=== PATIENT | female | born 1970 | race Caucasian/White ===

== ENCOUNTER 2024-02-27 20:46 | Emergency (ER) | payer OTHER, SELFPAY ==
--- NOTE | 2024-02-27 21:45 | RAD REPORT ---
EXAMINATION: CT HEAD WITHOUT CONTRAST CT CERVICAL SPINE WITHOUT CONTRAST CLINICAL INDICATION: Female, 53 years old. head injury TECHNIQUE: Axial CT images from the skull base to the vertex without intravenous contrast. Axial CT i mages through the cervical spine were obtained without intravenous contrast. Sagittal and coronal reformatted images were created from the data set. Coronal and sagittal reformatted images were creat ed from the data set. One or more of the following dose reduction techniques were used: Automated exposure control, adjustment of the mA and/or kV according to patient size, and/or iterative reconstr uction. Unless otherwise specified, incidental findings do not require dedicated imaging follow-up. [id number]. COMPARISON: No prior exam. FINDINGS: Head: INTRACRANIAL: No acute intracranial hemorrhage or extraaxial collection. No abnormal brain parenchyma l density. No evidence of acute infarction. The ventricles are normal in size and morphology. No mass or midline shift. VASCULATURE: No visualized abnormalities in the arteries or dural venous sinuses. SCALP/SKULL: No significant soft tissue or osseous abnormalities. SINUSES: Trace maxillary sinus thickening. Cervical spine: ALIGNMENT: The cervical spine has normal alignment without scoliosis or spondylolisthesis. BONE: Vertebral body heights are maintained. No aggressive osseous lesions. DEGENERATIVE CHANGES: Mild neural foraminal narrowing is present at C3-4, C4-5, C5-6 secondary to unc overtebral joint hypertrophy and small posterior disc osteophyte complexes. No high-grade central spinal stenosis. SOFT TISSUE: No significant abnormalities in the soft tissue of the neck. The visualized lung apices are clear. IMPRESSION: No acute intracranial abnormality. No acute fracture or traumatic malalignment of the cervical spine.
[2024-02-27] MEDS ORDERED: ONDANSETRON 4 MG/2 ML VIAL ONE (21:47)
[2024-02-27] MEDS ORDERED: HYDROMORPHONE HCL 1 MG/ML INJ ONE (21:48)
[2024-02-27 22:50] LABS: Absolute Lymphocytes (CBC) 0.8 K/uL (0.7-4.9); Absolute Monocytes 0.3 K/uL (0.1-1.3); Absolute Neutrophil 9.2 K/uL (1.8-8.0); Basophils % 0.2 % (0-1.3); Eosinophils % 0.1 % (0-4.4); Hematocrit 39.6 % (36.0-45.0); Lymphocytes % 7.3 % (15.3-44.8); MCHC 32.7 g/dL (32.0-36.0); MCV 82.5 fL (80-100); MPV 7.9 fL (7.6-11.3); Monocytes % 2.9 % (3.3-12.3); Neutrophils % 89.5 % (41.7-73.7); Platelets 272 thou/uL (152-406); RBC Red Blood Cell Count 4.81 M/uL (3.86-4.86); Red Cell Distribution Width 15.1 % (12.1-15.2)
[2024-02-27 22:51] LABS: PT Prothrombin Time 11.8 SECONDS (9.4-12.5); Protime INR 1.06
[2024-02-27 23:05] LABS: Anion Gap 9.9 mEq/L (5.0-15.0); Potassium 3.9 mEq/L (3.5-5.1)
[2024-02-27 23:25] LABS: Band Neutrophils 10 % (0-1); Differential Total Cells Count 100; Lymphocytes 5 % (15-42); Monocytes 2 % (0-10); Reactive Lymphocytes 2 %; Segmented Neutrophils 81 % (40-80)
[2024-02-27 23:26] LABS: Blood Morphology Comment NOT SEEN (NOT SEEN); Platelet Estimate ADEQ
--- NOTE | 2024-02-27 23:26 | ER ---
Nurse's Notes [facility] Name: Niesha De Los Santos Age: 53 yrs Sex: Female : 1970 Arrival Date: 02/27/2024 Time: 20:46 Bed 3 Private MD: Diagnosis: Closed head injury, scalp hematoma Presentation: 02/26 20:57 Chief complaint: Spouse and/or significant other states: just got released from [facility] this evening from having surgery on her bladder. I think they dropped her because she has a goose egg on the back of her head and is complaining of a severe headache. Coronavirus screen: Client denies travel out of the [place] in the last 14 days. Ebola Screen: Patient negative for fever greater than or equal to 101.5 degrees Fahrenheit, and additional compatible Ebola Virus Disease symptoms Patient denies exposure to infectious person. Patient denies travel to an Ebola-affected area in the 21 days before illness onset. No symptoms or risks identified at this time. Initial Sepsis Screen: Does the patient meet any 2 criteria? No. Patient's initial sepsis screen is negative. Does the patient have a suspected source of infection? No. Patient's initial sepsis screen is negative. Initial Sepsis Screen: Does the patient meet any 2 criteria? HR > 90 bpm. Risk Assessment: Do you want to hurt yourself or someone else? Patient reports no desire to harm self or others. Onset of symptoms was February 27, 2024. 20:57 Method Of Arrival: Wheelchair 6 20:57 Acuity: J LUIS 3 6 Triage Assessment: 20:58 Headache History: Denies prior headaches. General: Appears distressed, uncomfortable, [facility] Behavior is cooperative. Pain: Complains of pain in scalp Pain currently is 10 out of 10 on a pain scale. EENT: No signs and/or symptoms were reported regarding the EENT system. Neuro: Level of Consciousness is awake, alert, obeys commands, Oriented to person, place, time, situation, Reports headache. Cardiovascular: Patient's skin is warm and dry. Respiratory: Airway is patent Respiratory effort is even, unlabored, Respiratory pattern is regular, symmetrical. GI: No signs and/or symptoms were reported involving the gastrointestinal system. Abdomen is flat, non-distended. : Reports bladder surgery today. Derm: No signs and/or symptoms reported regarding the dermatologic system. Musculoskeletal: Swelling present in scalp. 22:13 Pain: Pain began 2 hours ago. kj2 23:28 Pain: Also complains of. 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 - Infectious Disease History:: Denies. - Social history:: Smoking status: Patient denies any tobacco usage or history of. Patient/guardian denies using alcohol. Screenin:10 [facility] ED Fall Risk Assessment (Adult) History of falling in the last 3 months, kj2 including since admission No falls in past 3 months (0 pts) Confusion or Disorientation No (0 pts) Intoxicated or Sedated No (0 pts) Impaired Gait No (0 pts) Mobility Assist Device Used No (0 pt) Altered Elimination No (0 pt) Score/Fall Risk Level 0 - 2 = Low Risk Maintained a safe environment, Hourly rounding (assess needs \T\ fall precautionary measures) done. Abuse screen: Denies threats or abuse. Denies injuries from another. Nutritional screening: No deficits noted. Tuberculosis screening: No symptoms or risk factors identified. Assessment: 21:45 General: Appears in no apparent distress. uncomfortable, Behavior is calm, cooperative. kj2 Pain: Complains of pain in HEAD, BACK Pain currently is 10 out of 10 on a pain scale. Neuro: Level of Consciousness is awake, alert, obeys commands, Oriented to person, place, time, situation. Cardiovascular: Patient's skin is warm and dry. Respiratory: Airway is patent Respiratory effort is even, unlabored. GI: Abdomen is non-distended, TENDER. : No signs and/or symptoms were reported regarding the genitourinary system. Vital Signs: 20:57 BP 155 / 101; Pulse 121; Resp 20; Temp 97.9(TE); Pulse Ox 100% on R/A; MAP 118 mmHg; tm6 Weight 85.73 kg; Height 5 ft. 6 in. ; Pain 10/10; 21:45 BP 153 / 86; Pulse 101; Resp 18; Pulse Ox 100% on R/A; kj2 23:18 BP 123 / 76; Pulse 99; Resp 18; Pulse Ox 98% on R/A; kj2 20:57 Body Mass Index 30.51 (85.73 kg, 167.64 cm) tm6 20:57 Pain Scale: Adult tm6 ED Course: 20:56 Patient arrived in ED. gm2 20:58 Triage completed. tm6 20:58 Arm band placed on right wrist. tm6 21:00 Makenzie Ashley MD is Attending Physician. sp3 21:27 CT Head C Spine In Process Unspecified. EDMS 21:43 Kelsie Glover, SASHA is Primary Nurse. kj2 21:50 Patient has correct armband on for positive identification. Bed in low position. Call kj2 light in reach. Side rails up X 1. Adult w/ patient. Provided Education on: CALL LIGHT, FALL PRECAUTIONS. 21:50 Inserted saline lock: 20 gauge in right antecubital area, using aseptic technique. kj2 Blood collected. Flushed with 10 mL NS. 22:06 Basic Metabolic Panel Sent. kj2 22:06 CBC with Diff Sent. kj2 22:06 PT-INR Sent. kj2 23:27 No provider procedures requiring assistance completed. kj2 23:29 IV discontinued, intact, bleeding controlled, No redness/swelling at site. Pressure kj2 dressing applied. Administered Medications: 22:05 Drug: HYDROmorphone IVP 1 mg IVP once Route: IVP; Site: right antecubital; kj2 22:38 Follow up: Response: No adverse reaction; Pain is decreased kj2 22:05 Drug: Ondansetron IVP 4 mg IVP once; over 2 minutes Route: IVP; Site: right antecubital;kj2 22:38 Follow up: Response: No adverse reaction kj2 Medication: 22:12 VIS not applicable for this client. kj2 Outcome: 23:25 Discharge ordered by . sp3 23:28 Discharged to home ambulatory, via wheelchair, kj2 23:28 Condition: stable 23:28 Discharge instructions given to patient, Instructed on discharge instructions, follow up and referral plans. Demonstrated understanding of instructions, follow-up care, 23:49 Patient left the ED. kj2 Signatures: Dispatcher [employer] EDMS Ashley, Setul, MD MD sp3 Lita Quinn gm2 Justa Haro RN RN tm6 Kelsie Glover RN RN kj2
--- NOTE | 2024-02-27 23:26 | EDPHYS ---
Physician Documentation [facility] Name: Niesha De Los Santos Age: 53 yrs Sex: Female : 1970 Arrival Date: 02/27/2024 Time: 20:46 Bed 3 Private MD: ED Physician Makenzie Ashley HPI: 02/26 21:11 This 53 yrs old Female presents to ER via Wheelchair with complaints of Headache. sp3 21:11 53-year-old female with a history of asthma presents to the ED with chief complaint sp3 headache with hematoma to the posterior occiput. Patient was just discharged from [facility] in [place] for bladder lift surgery and was on her way home when she developed a headache and noticed a hematoma on the back of her head. She is concerned that she was "dropped". She currently complains of occipital headache. She denies any neck pain, facial pain, chest pain, back pain, other extremity pain at this time. She does have lower abdominal pain from the surgery. ROS otherwise negative.. 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 - Infectious Disease History:: Denies. - Social history:: Smoking status: Patient denies any tobacco usage or history of. Patient/guardian denies using alcohol. ROS: 21:14 Constitutional: Negative for fever, chills, and weight loss, Eyes: Negative for injury, sp3 pain, redness, and discharge, ENT: Negative for injury, pain, and discharge, Neck: Negative for injury, pain, and swelling, Cardiovascular: Negative for chest pain, palpitations, and edema, Respiratory: Negative for shortness of breath, cough, wheezing, and pleuritic chest pain, Back: Negative for injury and pain, MS/Extremity: Negative for injury and deformity, Skin: Negative for injury, rash, and discoloration, Psych: Negative for depression, anxiety, suicide ideation, homicidal ideation, and hallucinations, Allergy/Immunology: Negative for hives, rash, and allergies, Endocrine: Negative for neck swelling, polydipsia, polyuria, polyphagia, and marked weight changes, Hematologic/Lymphatic: Negative for swollen nodes, abnormal bleeding, and unusual bruising, 21:14 All other systems are negative, Exam: 21:14 Constitutional: This is a well developed, well nourished patient who is awake, alert, sp3 and in no acute distress. Eyes: Pupils equal round and reactive to light, extra-ocular motions intact. Lids and lashes normal. Conjunctiva and sclera are non-icteric and not injected. Cornea within normal limits. Periorbital areas with no swelling, redness, or edema. Neck: Trachea midline, no thyromegaly or masses palpated, and no cervical lymphadenopathy. Supple, full range of motion without nuchal rigidity, or vertebral point tenderness. No Meningismus. Chest/axilla: Normal chest wall appearance and motion. Nontender with no deformity. No lesions are appreciated. Cardiovascular: Regular rate and rhythm with a normal S1 and S2. No gallops, murmurs, or rubs. Normal PMI, no JVD. No pulse deficits. Respiratory: Lungs have equal breath sounds bilaterally, clear to auscultation and percussion. No rales, rhonchi or wheezes noted. No increased work of breathing, no retractions or nasal flaring. Abdomen/GI: Soft, non-tender, with normal bowel sounds. No distension or tympany. No guarding or rebound. No evidence of tenderness throughout. Back: No spinal tenderness. No costovertebral tenderness. Full range of motion. Skin: Warm, dry with normal turgor. Normal color with no rashes, no lesions, and no evidence of cellulitis. MS/ Extremity: Pulses equal, no cyanosis. Neurovascular intact. Full, normal range of motion. Neuro: Awake and alert, GCS 15, oriented to person, place, time, and situation. Cranial nerves II-XII grossly intact. Motor strength 5/5 in all extremities. Sensory grossly intact. Cerebellar exam normal. Normal gait. Psych: Awake, alert, with orientation to person, place and time. Behavior, mood, and affect are within normal limits. 21:14 Head/face: 2 cm x 3 cm hematoma to the occiput noted.. Vital Signs: 20:57 BP 155 / 101; Pulse 121; Resp 20; Temp 97.9(TE); Pulse Ox 100% on R/A; MAP 118 mmHg; tm6 Weight 85.73 kg; Height 5 ft. 6 in. ; Pain 10; 21:45 BP 153 / 86; Pulse 101; Resp 18; Pulse Ox 100% on R/A; kj2 23:18 BP 123 / 76; Pulse 99; Resp 18; Pulse Ox 98% on R/A; kj2 20:57 Body Mass Index 30.51 (85.73 kg, 167.64 cm) tm6 20:57 Pain Scale: Adult tm6 MDM: 21:00 Patient medically screened. sp3 21:15 Data reviewed: vital signs, nurses notes, lab test result(s), radiologic studies. ED sp3 course: 53-year-old female with headache with possible trauma at outside facility/hospital and now with hematoma to the posterior occiput. No other obvious injuries noted on secondary exam. Cervical exam is normal with no Nexus criteria. Will obtain CT scan of the head and C-spine, general labs and coagulation profile and Dilaudid and Zofran for pain control. Pulse was 121 and will await scan and labs and effect of medication before further intervention. Neurologically patient is stable.. 23:23 ED course: CT scan of the head and C-spine negative and labs were normal. Patient feels sp3 better. We will safely discharged home with continued PCP follow-up. 02/26 21:09 Order name: Basic Metabolic Panel; Complete Time: 23:23 sp3 02/26 21:09 Order name: CBC with Diff; Complete Time: 23:26 sp3 02/26 21:09 Order name: PT-INR; Complete Time: 23:23 sp3 02/26 22:54 Order name: Manual Differential; Complete Time: 23:26 EDMS 02/26 21:09 Order name: CT Head C Spine; Complete Time: 21:58 sp3 02/26 21:09 Order name: IV Saline Lock; Complete Time: 22:05 sp3 02/26 22:19 Order name: Misc. Order: RECOLLECT ALL LABS; Complete Time: 22:37 rv1 Administered Medications: 22:05 Drug: HYDROmorphone IVP 1 mg IVP once Route: IVP; Site: right antecubital; kj2 22:38 Follow up: Response: No adverse reaction; Pain is decreased kj2 22:05 Drug: Ondansetron IVP 4 mg IVP once; over 2 minutes Route: IVP; Site: right antecubital;kj2 22:38 Follow up: Response: No adverse reaction kj2 Disposition Summary: 02/27/24 23:25 Discharge Ordered Notes: Location: Home sp3 Condition: Stable sp3 Diagnosis - Closed head injury, scalp hematoma sp3 Followup: sp3 - With: Private Physician - When: Upon discharge from the Emergency Department - Reason: Continuance of care Discharge Instructions: - Discharge Summary Sheet sp3 - Head Injury, Adult sp3 Forms: - Medication Reconciliation Form sp3 - Antibiotic Education sp3 - Prescription Opioid Use sp3 - Patient Portal Instructions sp3 - Leadership Thank You Letter sp3 Signatures: Dispatcher [employer] Makenzie Baptiste MD MD sp3 Maia Yang Tawney, RN RN tm6 Kelsie Glover RN RN kj2
[2024-02-28 16:08] VITALS: TEMP 97.9
[2024-02-28 16:10] VITALS: BP 123/76; O2SAT 98
== END 2024-02-27 23:49 | disposition home or self-care (01) ==
LOC: ER 20:46
DX: S00.03XA Contusion of scalp, initial encounter (principal); S09.90XA Unspecified injury of head, initial encounter; J45.909 Unspecified asthma, uncomplicated; Z88.1 Allergy status to other antibiotic agents; X58.XXXA Exposure to other specified factors, initial encounter; Z98.890 Other specified postprocedural states
CPT/HCPCS: 85025; 80048; 36415; 85610; 70450; 72125; 96375; 96374; 99284; J1170; J2405